=== PATIENT | female | born 1980 | race Caucasian/White ===

== ENCOUNTER 2016-12-24 12:37 | Inpatient (IN) | payer BC ==
[2016-12-24 12:58] VITALS: RESP 16
[2016-12-24] MEDS ORDERED: NALOXONE 0.4 MG/ML 1 ML VIAL IV PRN (17:45)
[2016-12-24] MEDS ORDERED: LORazepam 2 MG/ML SYRINGE IV PRN (17:48)
[2016-12-24] MEDS ORDERED: THIAMINE 100 MG/ML 2 ML VIAL IM STA (17:48)
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
[2016-12-24] MEDS: LORazepam 2 MG/ML SYRINGE IV PRN (20:49)
[2016-12-24] MEDS ORDERED: SERTRALINE 50 MG TAB PO SCH (23:30)
[2016-12-25] MEDS: chlordiazePOXIDE 25 MG CAP PO SCH ×2 (00:03→07:40)
[2016-12-25] MEDS: clonazePAM 0.5 MG TAB PO SCH ×2 (00:03→07:40)
[2016-12-25] MEDS: LORazepam 2 MG/ML SYRINGE IV PRN ×3 (00:10→10:10)
[2016-12-25 07:48] VITALS: BP 113/71; PULSE 80; TEMP 97.5
[2016-12-25] MEDS ORDERED: THIAMINE 100 MG TAB PO SCH (12:00)
[2016-12-25 12:01] LABS: Basophils # (A) 0.1 k/uL (0-0.2); Basophils % (A) 1 %; CH 28.8; CHCM 34.2; Eosinophils # (A) 0.1 k/uL (0-0.7); Eosinophils % (A) 1 %; HCT 35.8 % (34.0-46.0); HDW 3.07; HGB 12.6 gm/dL (11.4-16.0); Luc # (Auto) 0.11; Luc % (Auto) 2; Lymphocytes # (A) 1.3 k/uL (1.0-4.8); Lymphocytes % (A) 22 %; MCH 29.6 pg (25.0-35.0); MCHC 35.2 g/dL (31.0-37.0); MCV 84.3 fL (80.0-100.0); Mean Platelet Volume 6.8; Monocytes # (A) 0.4 k/uL (0-1.0); Monocytes % (A) 6 %; Neutrophils # (A) 4.2 k/uL (1.3-7.7); Neutrophils % (A) 68 %; RBC 4.25 m/uL (3.80-5.40); RDW 14.4 % (11.5-15.5); WBC 6.2 k/uL (3.8-10.6); WBC (Perox) 6.17
[2016-12-25 12:08] LABS: ALT 34 U/L (9-52); AST 41 U/L (14-36); Alkaline Phosphatase 56 U/L (38-126); Anion Gap 12 mmol/L; Blood Urea Nitrogen 9 mg/dL (7-17); Calcium 9.4 mg/dL (8.4-10.2); Carbon Dioxide 22 mmol/L (22-30); Chloride 104 mmol/L (98-107); Glucose 103 mg/dL (74-99); Non-African American GFR(MDRD) >60 (>60 ml/min/1.73 sqM); Potassium 3.8 mmol/L (3.5-5.1); Sodium 138 mmol/L (137-145); Total Bilirubin 0.9 mg/dL (0.2-1.3)
[2016-12-25 12:13] LABS: Appearance,Urine Cloudy (Clear); Bilirubin,Urine Negative (Negative); Glucose,Urine (UA) Negative (Negative); Ketones,Urine Negative (Negative); Leukocyte Esterase,Urine Small (Negative); Mucus,Urine Few /hpf; Nitrite,Urine Negative (Negative); Particle Count 4855; Protein,Urine 1+ (Negative); RBC,Urine 3 /hpf (0-5); Specific Gravity,Urine 1.024 (1.001-1.035); Squamous Epithelial Cell,Urine 2 /hpf (0-4); UA Billing (MACRO vs. MICRO) MICRO; Urobilinogen,Urine <2.0 mg/dL (<2.0); WBC,Urine 3 /hpf (0-5)
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
[2016-12-25] MEDS ORDERED: GABAPENTIN 100 MG CAP PO SCH (21:00)
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
== END 2016-12-25 16:13 | disposition home or self-care (01) | DRG 896 ==
LOC: EC 12:37 → 4MS4W 17:45
PROVIDERS: ADMIT Hospitalist; ATTEND Hospitalist
DX: F10.129 Alcohol abuse with intoxication, unspecified (principal); G93.41 Metabolic encephalopathy; R45.851 Suicidal ideations; F11.10 Opioid abuse, uncomplicated; F14.10 Cocaine abuse, uncomplicated; J45.909 Unspecified asthma, uncomplicated; F32.9 Major depressive disorder, single episode, unspecified; Z87.891 Personal history of nicotine dependence; Z79.899 Other long term (current) drug therapy; Z88.2 Allergy status to sulfonamides
CPT/HCPCS: 36415; 80053; 80306; 80320; 81001; 81025; 85025; 96372; 99285